=== PATIENT | male | born 1985 | race American Indian/Alaskan Native ===

== ENCOUNTER 2017-08-29 21:07 | Emergency (ER) | payer SELFPAY ==
--- NOTE | 2017-08-29 23:00 | XRay Report ---
FINAL REPORT PROCEDURE: XR SPINE LUMBOSACRAL 2-3V TECHNIQUE: Lumbosacral spine, two views HISTORY: lower back pain COMPARISON: No prior studies are available for comparison. FINDINGS: Vertebral body heights and alignment are maintained. Disc spaces are preserved. There appears to be mild right convex curvature at the thoracolumbar junction. IMPRESSION: Mild right convex curvature at the thoracolumbar junction. Scoliosis study could be obtained as indicated.
--- NOTE | 2017-08-30 01:43 | Emergency Department Report ---
HPI - General Chief Complaint: Back Pain/Injury Time Seen by Provider: 08/30/17 01:06 - HPI HPI: 32-year-old male presents with right lower back pain 2 days. Patient states he was walking across the street when he felt like he pulled muscle on his back. Patient denies any injury, fall or trauma. He denies pain with urination , abdominal pain, fever, nausea vomiting or any other problems. ED Past Medical Hx - Past Medical History Previous Medical History?: No - Surgical History Past Surgical History?: No - Social History Smoking Status: Current Every Day Smoker Substance Use Type: Alcohol, Marijuana - Medications Home Medications: Home Medications Medication Instructions Recorded Confirmed Last Taken Type Cyclobenzaprine HCl [Flexeril 5 MG 5 mg PO QHS #10 tab 08/30/17 Unknown Rx TAB] Ibuprofen [Motrin] 600 mg PO Q8H PRN #30 tablet 08/30/17 Unknown Rx ED Review of Systems ROS: Stated complaint: BACK PAIN Other details as noted in HPI Constitutional: denies: chills, fever Eyes: denies: eye pain, eye discharge, vision change ENT: denies: ear pain, throat pain Respiratory: denies: cough, shortness of breath, wheezing Cardiovascular: denies: chest pain, palpitations Endocrine: no symptoms reported Gastrointestinal: denies: abdominal pain, nausea, diarrhea Genitourinary: denies: urgency, dysuria Musculoskeletal: back pain. denies: joint swelling, arthralgia Skin: denies: rash, lesions Neurological: denies: headache, weakness, paresthesias Psychiatric: denies: anxiety, depression Hematological/Lymphatic: denies: easy bleeding, easy bruising Physical Exam - Physical Exam Vital Signs: Vital Signs 08/29/17 08/29/17 21:07 21:15 Temperature 99.1 F 99.1 F Pulse Rate 65 65 Respiratory 16 16 Rate Blood Pressure 119/83 119/83 O2 Sat by Pulse 99 99 Oximetry Physical Exam: GENERAL: Alert and oriented x3, no apparent distress, Normal Gait, atraumatic. HEAD: Head is normocephalic and a-traumatic. NECK: Supple. Non edematous, No lymphadenopathy or thyromegaly. No C-spine tenderness, full range of motion LUNGS: Symetrical with respiration, No wheezing, no rales or crackles, CTAB. HEART: S1, S2 present, regular rate and rhythm without murmur, no rubs, no gallops. Non tender to palpation BACK: Full range of motion, no spinal tenderness, Tenderness to palpation of the trapezius muscles and latissimus dorsi muscles of the back EXTREMITIES/MUSCULOSKELETAL: No cyanosis, clubbing, rash, lesions or edema. Full ROM bilaterally. UE/LE Pulses 2+ bilaterally. LE and UE 5+ strength bilaterally, NEUROLOGIC: The patient is cooperative with no focal neurologic deficits. SKIN: Warm and dry, No lesions, No ulceration or induration present. ED Course Vital Signs 08/29/17 08/29/17 21:07 21:15 Temperature 99.1 F 99.1 F Pulse Rate 65 65 Respiratory 16 16 Rate Blood Pressure 119/83 119/83 O2 Sat by Pulse 99 99 Oximetry ED Medical Decision Making - Radiology Data Radiology results: report reviewed, image reviewed FINAL REPORT PROCEDURE: XR SPINE LUMBOSACRAL 2-3V TECHNIQUE: Lumbosacral spine, two views HISTORY: lower back pain COMPARISON: No prior studies are available for comparison. FINDINGS: Vertebral body heights and alignment are maintained. Disc spaces are preserved. There appears to be mild right convex curvature at the thoracolumbar junction. IMPRESSION: Mild right convex curvature at the thoracolumbar junction. Scoliosis study could be obtained as indicated. Transcribed By: [facility] Dictated By: ALEX MENDOZA M.D. Electronically Authenticated By: ALEX MENDOZA M.D. Signed Date/Time: 08/29/17 9974 - Medical Decision Making 32-year-old male presents to ED with myalgia of lowr back ED course: Patient received x-ray ED X-ray shows no acute findings. Vital signs are normal patient is in no acute distress Discussed with patient follow-up with primary care physician. Discussed the patient and take medications as prescribed. Patient has no neurological deficit. Patient is alert and oriented 3 and understands all instructions given. Discussed drowsiness effect of Flexeril makes her drowsy and not to operate machinery while taking flexeril Critical care attestation.: If time is entered above; I have spent that time in minutes in the direct care of this critically ill patient, excluding procedure time. ED Disposition Clinical Impression: Strain of muscle, fascia and tendon of lower back, initial encounter Disposition: - TO HOME OR SELFCARE Is pt being admited?: No Does the pt Need Aspirin: No Condition: Stable Instructions: Muscle Strain (ED), Musculoskeletal Pain (ED), Trigger Point Pain (ED) Additional Instructions: Make sure to follow up with the primary care physician as discussed. Take all your medications as you've been prescribed. If you have any worsening symptoms or develop new symptoms please return to ED immediately. Prescriptions: Cyclobenzaprine HCl [Flexeril 5 MG TAB] 5 mg PO QHS #10 tab Ibuprofen [Motrin] 600 mg PO Q8H PRN #30 tablet PRN Reason: Pain Referrals: PRIMARY CARE,MD [Primary Care Provider] - 3-5 Days [facility] [Outside] - 3-5 Days [facility] [Outside] - 3-5 Days Forms: Work/School Release Form(ED), Accompanied Note Time of Disposition: 01:44
[2017-08-30 02:13] VITALS: BP 97/46
== END 2017-08-30 02:13 | disposition home or self-care (01) ==
LOC: ED 21:07
DX: S39.012A Strain of muscle, fascia and tendon of lower back, initial encounter (principal); F17.200 Nicotine dependence, unspecified, uncomplicated; F12.10 Cannabis abuse, uncomplicated; X50.0XXA Overexertion from strenuous movement or load, initial encounter; Y93.01 Activity, walking, marching and hiking; Y99.8 Other external cause status; Y92.410 Unspecified street and highway as the place of occurrence of the external cause
CPT/HCPCS: 72100; 99283

== ENCOUNTER → 2017-11-15 22:27 | Emergency (ER) | payer SELFPAY | END | disposition left against medical advice (07) | LOC: ED 22:27 | DX: R06.02 Shortness of breath (principal); Z53.21 Procedure and treatment not carried out due to patient leaving prior to being seen by health care provider ==

== ENCOUNTER 2017-11-16 14:30 | Emergency (ER) | payer SELFPAY ==
--- NOTE | 2017-11-16 19:40 | Emergency Department Report ---
ED ENT HPI - General Chief complaint: Sore Throat Stated complaint: SWELLING OF THROAT LACK OF BREATHING Time Seen by Provider: 11/16/17 19:39 Source: patient Mode of arrival: Ambulatory Limitations: No Limitations - History of Present Illness Initial comments: 32-year-old -[place] male comes in stating that he needs medical clearance for possible allergy to insulation at his job. Patient states at his job site he has irritation to his throat. 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 Patient reports that yesterday his job , gave him a mask yesterday. Patient denies any past medical history he currently takes no medications and has no known drug allergies. MD complaint: sore throat -: week(s) Consistency: intermittent Associated Symptoms: cough, sore throat. denies: rhinorrhea - Related Data Previous Rx's Medication Instructions Recorded Last Taken Type Cyclobenzaprine HCl [Flexeril 5 MG 5 mg PO QHS #10 tab 08/30/17 Unknown Rx TAB] Ibuprofen [Motrin] 600 mg PO Q8H PRN #30 tablet 08/30/17 Unknown Rx Allergies Allergy/AdvReac Type Severity Reaction Status Date / Time No Known Allergies Allergy Unverified 08/29/17 21:15 ED Dental HPI - General Chief complaint: Sore Throat Stated complaint: SWELLING OF THROAT LACK OF BREATHING Time Seen by Provider: 11/16/17 19:39 Source: patient Mode of arrival: Ambulatory Limitations: No Limitations - Related Data Previous Rx's Medication Instructions Recorded Last Taken Type Cyclobenzaprine HCl [Flexeril 5 MG 5 mg PO QHS #10 tab 08/30/17 Unknown Rx TAB] Ibuprofen [Motrin] 600 mg PO Q8H PRN #30 tablet 08/30/17 Unknown Rx Allergies Allergy/AdvReac Type Severity Reaction Status Date / Time No Known Allergies Allergy Unverified 08/29/17 21:15 ED Review of Systems ROS: Stated complaint: SWELLING OF THROAT LACK OF BREATHING Other details as noted in HPI ED Past Medical Hx - Past Medical History Previous Medical History?: No - Surgical History Past Surgical History?: No - Social History Smoking Status: Current Every Day Smoker Substance Use Type: None - Medications Home Medications: Home Medications Medication Instructions Recorded Confirmed Last Taken Type Cyclobenzaprine HCl [Flexeril 5 MG 5 mg PO QHS #10 tab 08/30/17 Unknown Rx TAB] Ibuprofen [Motrin] 600 mg PO Q8H PRN #30 tablet 08/30/17 Unknown Rx ED Physical Exam - General Limitations: No Limitations General appearance: alert, in no apparent distress - Head Head exam: Present: atraumatic, normocephalic - Eye Eye exam: Present: normal appearance - ENT ENT exam: Present: normal orophraynx, mucous membranes moist - Respiratory Respiratory exam: Present: normal lung sounds bilaterally. Absent: respiratory distress - Cardiovascular Cardiovascular Exam: Present: regular rate, normal rhythm. Absent: systolic murmur, diastolic murmur, rubs, gallop - Back Exam Back exam: Present: normal inspection, full ROM - Neurological Exam Neurological exam: Present: alert, oriented X3 - Psychiatric Psychiatric exam: Present: normal affect, normal mood - Skin Skin exam: Present: warm, dry, intact, normal color. Absent: rash ED Course Vital Signs 11/16/17 11/16/17 14:38 21:01 Temperature 98 F Pulse Rate 82 Respiratory 16 18 Rate Blood Pressure 134/86 O2 Sat by Pulse 99 98 Oximetry ED Medical Decision Making - Radiology Data Radiology results: report reviewed, image reviewed FINAL REPORT PROCEDURE: XR CHEST ROUTINE 2V TECHNIQUE: PA and lateral chest radiographs were obtained. CPT 93513 HISTORY: cough. COMPARISON: No prior studies are available for comparison. FINDINGS: Heart: Normal. Mediastinum/Vessels: Normal. Lungs/Pleural space: Normal. Bony thorax: No acute osseous abnormality. Other: IMPRESSION: Normal examination. Transcribed By: MARGUERITE Dictated By: ZELDA WONG MD Electronically Authenticated By: ZELDA WONG MD Signed Date/Time: 11/16/172126 DD/ 26 TD/TT: 11/16/172126 Critical care attestation.: If time is entered above; I have spent that time in minutes in the direct care of this critically ill patient, excluding procedure time. ED Disposition Clinical Impression: Cough Disposition: DC-01 TO HOME OR SELFCARE Is pt being admited?: No Does the pt Need Aspirin: No Condition: Stable Additional Instructions: Please try to avoid being around fiberglass material. If you have to be around the material please wear a mask. Referrals: PRIMARY CAREMD [Primary Care Provider] - 3-5 Days Forms: Work/School Release Form(ED)
--- NOTE | 2017-11-16 21:32 | XRay Report ---
FINAL REPORT PROCEDURE: XR CHEST ROUTINE 2V TECHNIQUE: PA and lateral chest radiographs were obtained. CPT 00923 HISTORY: cough. COMPARISON: No prior studies are available for comparison. FINDINGS: Heart: Normal. Mediastinum/Vessels: Normal. Lungs/Pleural space: Normal. Bony thorax: No acute osseous abnormality. Other: IMPRESSION: Normal examination.
[2017-11-16 21:58] VITALS: BP 134/80
== END 2017-11-16 21:59 | disposition home or self-care (01) ==
LOC: ED 14:30
DX: R07.0 Pain in throat (principal); R05 Cough; F17.200 Nicotine dependence, unspecified, uncomplicated
CPT/HCPCS: 71046; 99283

== ENCOUNTER 2019-02-24 15:08 | Emergency (ER) | payer SELFPAY ==
[2019-02-24 15:58] VITALS: BP 116/78
--- NOTE | 2019-02-24 15:58 | Emergency Department Report ---
Blank Doc - Documentation Documentation: 33-year-old male that presents with headache and neck pain s/p 3 days ago. This initial assessment/diagnostic orders/clinical plan/treatment(s) is/are subject to change based on patient's health status, clinical progression and re- assessment by fellow clinical providers in the ED. Further treatment and workup at subsequent clinical providers discretion. Patient/guardians urged not to elope from the ED as their condition may be serious if not clinically assessed and managed. Initial orders include: 1- Patient sent to [facility] for further evaluation and treatment 2- CT head/cervical spine 3- cervical collar
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
== END 2019-02-24 19:05 | disposition left against medical advice (07) ==
LOC: ED 15:08
DX: R51 Headache (principal); M54.2 Cervicalgia; Z53.21 Procedure and treatment not carried out due to patient leaving prior to being seen by health care provider
CPT/HCPCS: 70450; 72125

== ENCOUNTER 2021-01-09 09:57 | Emergency (ER) | payer SELFPAY | END 2021-01-09 10:00 | disposition left against medical advice (07) | LOC: ED 09:57 | DX: H57.89 Other specified disorders of eye and adnexa (principal); Z53.21 Procedure and treatment not carried out due to patient leaving prior to being seen by health care provider ==

== ENCOUNTER 2021-12-05 09:03 | Emergency (ER) | payer OTHER ==
[2021-12-05] MEDS ORDERED: IBUPROFEN 800 MG TAB PO ONE (10:57)
--- NOTE | 2021-12-05 11:41 | XRay Report ---
Lumbar spine 3 views INDICATION: Back pain FINDINGS: Mild curvature the spine. No compression fractures seen. No subluxation. Visualized sacrum appears normal. Signer Name: Taqueria Pereira MD Signed: 12/05/2021 11:37 AM Workstation Name: [id number]
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
[2021-12-05 12:25] VITALS: BP 198/86
== END 2021-12-05 12:32 ==
LOC: ED 09:03
DX: S39.92XA Unspecified injury of lower back, initial encounter (principal); F17.200 Nicotine dependence, unspecified, uncomplicated; Z79.899 Other long term (current) drug therapy; V89.2XXA Person injured in unspecified motor-vehicle accident, traffic, initial encounter; Y93.89 Activity, other specified; Y92.488 Other paved roadways as the place of occurrence of the external cause; Y99.8 Other external cause status
CPT/HCPCS: 72100; 99283